=== PATIENT | male | born 2000 | race Caucasian/White ===

== ENCOUNTER 2019-05-19 14:55 | Emergency (ER) | payer OTHER ==
[2019-05-19 15:50] LABS: Influenza B Molecular POSITIVE (Negative)
[2019-05-19 15:57] VITALS: BP 121/60
--- NOTE | 2019-05-19 15:58 | UC ---
FLU HPI - HPI Summary HPI Summary: 18-year-old male presents with complaints of 2 day history of general malaise, fatigue, nasal congestion, sinus pressure, sore throat, and a nonproductive cough. Reports yesterday had some nausea. No measured fever however has been feeling "hot and cold". Did not receive his influenza vaccine this season. Denies ear pain, dysphagia, chest pain, shortness of breath, abdominal pain, vomiting, or diarrhea. - History of Current Complaint Chief Complaint: UCRespiratory Stated Complaint: HEADACHE, NAUSEA, SORE THROAT Time Seen by Provider: 05/19/19 15:35 Hx Obtained From: Patient Pain Intensity: 0 - Allergy/Home Medications Allergies/Adverse Reactions: Allergies Allergy/AdvReac Type Severity Reaction Status Date / Time Sulfa (Sulfonamide Allergy Rash Verified 05/19/19 15:27 Antibiotics) Home Medications: Home Medications hydrOXYzine HCL TAB* [Atarax 10 MG TAB*] 1 tab DAILY PRN 05/19/19 [History Confirmed 05/19/19] PMH/Surg Hx/FS Hx/Imm Hx Previously Healthy: Yes - Surgical History Surgical History: Yes Surgery Procedure, Year, and Place: Tonsils - Family History Known Family History: Positive: Non-Contributory - Social History Occupation: Employed Full-time Lives: Alone Alcohol Use: Occasionally Substance Use Type: Marijuana Smoking Status (MU): Current Some Day Smoker Review of Systems All Other Systems Reviewed And Are Negative: Yes Constitutional: Positive: Chills, Fatigue Eyes: Negative: Drainage, Eye Redness ENT: Positive: Sore Throat, Nasal Discharge, Sinus Congestion, Sinus Pain/ Tenderness. Negative: Ear Ache Respiratory: Positive: Cough. Negative: Shortness Of Breath Cardiovascular: Negative: Palpitations, Chest Pain Gastrointestinal: Positive: Nausea. Negative: Abdominal Pain, Vomiting, Diarrhea Genitourinary: Positive: Negative Musculoskeletal: Positive: Negative Neurological: Positive: Negative Is Patient Immunocompromised?: No Physical Exam - Summary Physical Exam Summary: GENERAL APPEARANCE: Well developed, well nourished, alert and cooperative, and appears to be in no acute distress. EYES: Conjunctiva clear. No drainage. EARS: External auditory canals and tympanic membranes clear, hearing grossly intact. NOSE: Moderate nasal congestion. Clear nasal discharge. THROAT: Pharyngeal erythema. Tonsils surgically absent. Uvula midline. NECK: Neck supple, non-tender without lymphadenopathy. CARDIAC: Normal S1 and S2. No S3, S4 or murmurs. Rhythm is regular. There is no peripheral edema, cyanosis or pallor. Extremities are warm and well perfused. Capillary refill is less than 2 seconds. Peripheral pulses intact. LUNGS: Clear to auscultation without rales, rhonchi, wheezing or diminished breath sounds. Dry, nonproductive cough. ABDOMEN: Positive bowel sounds. Soft, nondistended, nontender. No guarding or rebound. No masses or hepatosplenomegally. MUSKULOSKELETAL: ROM intact to all extremities. No joint erythema or tenderness. Normal muscular development. Normal gait. SKIN: Skin normal color, texture and turgor with no lesions or eruptions. Triage Information Reviewed: Yes Vital Signs: Initial Vital Signs Temp 99.2 F 05/19/19 15: Pulse 85 05/19/19 15:28 Resp 16 05/19/19 15:28 BP 121/60 05/19/19 15: Pulse Ox 100 05/19/19 15:28 Vital Signs Reviewed: Yes Flu Course/Dx - Course Course Of Treatment: 18-year-old male presents with complaints of 2 day history of general malaise, fatigue, nasal congestion, sinus pressure, sore throat, and a nonproductive cough. Reports yesterday had some nausea. No measured fever however has been feeling "hot and cold". Did not receive his influenza vaccine this season. Denies ear pain, dysphagia, chest pain, shortness of breath, abdominal pain, vomiting, or diarrhea. Afebrile. Vital signs stable. Patient hand moderate nasal congestion, clear nasal discharge, normal TMs, pharyngeal erythema, surgically absent tonsils, no cervical lymphadenopathy, clear bilateral breath sounds, dry nonproductive cough, and otherwise unremarkable exam. Rapid influenza was positive for influenza B. Reviewed results with the patient. Discussed the risks and benefits of treating with Tamiflu and patient is electing to begin at this time. I have additionally recommended symptomatic treatment including Tessalon Perles 1 capsule every 8 hours as needed for cough. He is to return here or follow up with his primary care provider in 5-7 days if symptoms are not improving. Anticipatory guidance and warning symptoms were reviewed with the patient. Verbalizes understanding and agrees with plan of care. - Differential Dx/Diagnosis Differential Diagnosis/HQI/PQRI: Bronchitis, Influenza, Pneumonia, Upper Respiratory Infection Provider Diagnosis: Influenza B Discharge ED - Sign-Out/Discharge Documenting (check all that apply): Patient Departure All imaging exams completed and their final reports reviewed: No Studies - Discharge Plan Condition: Stable Disposition: HOME Prescriptions: Oseltamivir CAP* [Tamiflu CAP*] 75 mg PO BID #10 cap Patient Education Materials: Influenza (ED) Referrals: No Primary Care Phys,NOPCP [Primary Care Provider] - Additional Instructions: Your flu test in the clinic today was positive for influenza B. Start Tamiflu 1 capsule twice a day for 5 days. Get plenty of rest. Drink plenty of fluids to avoid dehydration especially if you are running any fever. Take over the counter acetaminophen (Tylenol) or ibuprofen (Advil, Motrin) according to directions as needed for pain or fever. Use salt water gargles several times a day if you have a sore throat. You may also use Chloraseptic spray or Cepacol lonzenges according to directions which contain a numbing medication and can provide some temporary relief from your sore throat. Return here or follow up with your primary care provider in 5-7 days if symptoms persist. Seek immediate medical attention in the emergency room if you have fever greater than 100.5 F despite taking acetaminophen or ibuprofen, have chest pain , difficulty breathing, are unable to swallow, or have any worsening of symptoms. - Billing Disposition and Condition Condition: STABLE Disposition: Home
== END 2019-05-19 16:08 | disposition home or self-care (01) ==
LOC: UCCORT 14:55
DX: J10.1 Influenza due to other identified influenza virus with other respiratory manifestations (principal); F17.200 Nicotine dependence, unspecified, uncomplicated; Z88.2 Allergy status to sulfonamides
CPT/HCPCS: 99202; G0463